=== PATIENT | female | born 1950 | race Asian ===

== ENCOUNTER 2018-09-22 10:58 | Day surgery (SDC) | payer MEDICARE ==
[~2018-09-22] VITALS: Ht 157.5 cm; Wt 65.6 kg
[2018-09-22] MEDS ORDERED: LACTATED RINGERS 1,000 ML IV SCH (11:36)
[2018-09-22 11:38] VITALS: BP 163/77
[2018-09-22] MEDS ORDERED: miralax (11:45)
[2018-09-22] MEDS ORDERED: vitamin b-12 (11:45)
[2018-09-22] MEDS ORDERED: GABAPENTIN 300 MG CAPSULE PO ONE (12:00)
[2018-09-22] MEDS ORDERED: PLEASE ENTER HEIGHT AND WEIGHT MC SCH (12:00)
[2018-09-22] MEDS ORDERED: ACETAMINOPHEN 500 MG TABLET PO ONE (12:00)
[2018-09-22] MEDS ORDERED: FENTANYL PF 100 MCG/2ML ONE (12:48)
[2018-09-22] MEDS ORDERED: MIDAZOLAM 1 MG/ML, 2ML ONE (12:48)
[2018-09-22] MEDS ORDERED: HEPARIN 1,000 UNITS/ML, 10ML ONE (13:03)
[2018-09-22] MEDS ORDERED: BUPIVACAINE/PF-EPI 0.5% 1:200K ONE (13:03)
[2018-09-22] MEDS ORDERED: BUPIVACAINE/PF-EPI 0.5% 1:200K INFIL ONE (13:45)
[2018-09-22] MEDS ORDERED: FENTANYL PF 100 MCG/2ML IV PRN (14:00)
[2018-09-22] MEDS ORDERED: HYDROmorphone 1 MG/ML, 1ML INJ IV PRN (14:00)
[2018-09-22] MEDS ORDERED: OXYcodone 5 MG/5 ML ORAL.SOL UDC PO PRN (14:00)
[2018-09-22] MEDS ORDERED: KETOROLAC 30 MG/1 ML IV PRN (14:00)
[2018-09-22] MEDS ORDERED: ONDANSETRON 2MG/ML, 2ML IVPush PRN (14:00)
[2018-09-22] MEDS ORDERED: PROMETHAZINE 25 MG/ML, 1ML IV PRN (14:00)
[2018-09-22] MEDS ORDERED: hydrALAzine 20 MG/ML, 1ML IV PRN (14:00)
[2018-09-22] MEDS ORDERED: METOCLOPRAMIDE 5 MG/ML, 2ML IV PRN (14:00)
[2018-09-22] MEDS ORDERED: LABETALOL 20 MG/4 ML IV PRN (14:00)
[2018-09-22] MEDS ORDERED: MEPERIDINE/PF 25MG/0.5ML IVPush PRN (14:00)
[2018-09-22] MEDS ORDERED: ALBUTEROL SULFATE 2.5 MG/3 ML NPPB PRN (14:00)
[2018-09-22] MEDS ORDERED: OXYcodone 5 MG/5 ML ORAL.SOL UDC ONE (14:29)
[2018-09-22] MEDS ORDERED: SUCCINYLCHOLINE 20 MG/ML, 10ML ONE (15:04)
[2018-09-22] MEDS ORDERED: PROPOFOL 10 MG/ML, 20ML ONE (15:04)
[2018-09-22] MEDS ORDERED: ROCURONIUM 10MG/ML,5ML ONE (15:04)
[2018-09-22] MEDS ORDERED: ONDANSETRON 2MG/ML, 2ML ONE (15:04)
[2018-09-22] MEDS ORDERED: CEFAZOLIN 1,000 MG ONE (15:04)
== END 2018-09-22 15:30 | disposition home or self-care (01) ==
LOC: OUT 10:58
PROVIDERS: ATTEND Colon & Rectal Surgery
DX: C19 Malignant neoplasm of rectosigmoid junction (principal); Z72.89 Other problems related to lifestyle; Z87.891 Personal history of nicotine dependence; Z91.013 Allergy to seafood; Z79.899 Other long term (current) drug therapy; Z90.710 Acquired absence of both cervix and uterus; Z98.890 Other specified postprocedural states
CPT/HCPCS: 36561; 77001; 93005; C1788; J0330; J0690; J1644; J2250; J2405; J2704; J3010